=== PATIENT | female | born 1945 | race Caucasian/White ===

== ENCOUNTER 2017-12-25 15:28 | Outpatient (CLI) | payer OTHER | END 2017-12-25 16:55 | disposition home or self-care (01) | LOC: MRI 15:28 | DX: M96.1 Postlaminectomy syndrome, not elsewhere classified (principal); M51.27 Other intervertebral disc displacement, lumbosacral region | CPT/HCPCS: 72158 ==

== ENCOUNTER 2018-03-01 11:34 | Emergency (ER) | payer OTHER ==
[~2018-03-01] VITALS: Ht 149.9 cm; Wt 70.8 kg
[2018-03-01] MEDS ORDERED: METFORMIN HCL500 MG (12:00)
[2018-03-01] MEDS ORDERED: LANTUS SOL100 UNIT/1 (12:00)
[2018-03-01] MEDS ORDERED: AVAPRO300 MG (12:00)
[2018-03-01] MEDS ORDERED: HUMALOG100 UNIT/1 (12:00)
[2018-03-01] MEDS ORDERED: TOPROL XL100 MG (12:01)
[2018-03-01] MEDS ORDERED: GABAPENTIN600 MG (12:01)
[2018-03-01] MEDS ORDERED: AFEDITAB CR30 MG (12:01)
[2018-03-01] MEDS ORDERED: ASPIR 8181 MG (12:02)
[2018-03-01] MEDS ORDERED: ZOLOFT50 MG (12:02)
[2018-03-01] MEDS ORDERED: BRILINTA60 MG (12:02)
== END 2018-03-01 14:32 | disposition home or self-care (01) ==
LOC: ER 11:34
DX: L08.89 Other specified local infections of the skin and subcutaneous tissue (principal)

== ENCOUNTER 2023-03-24 04:14 | Emergency (ER) | payer OTHER ==
[~2023-03-24] VITALS: Ht 144.8 cm; Wt 77.1 kg
[~2023-03-24 04:14] MED LIST: AFEDITAB CR30 MG; ASPIR 8181 MG; AVAPRO300 MG; BRILINTA60 MG; GABAPENTIN600 MG; HUMALOG100 UNIT/1; LANTUS SOL100 UNIT/1; METFORMIN HCL500 MG; TOPROL XL100 MG; ZOLOFT50 MG
[2023-03-24] MEDS ORDERED: BUPROPION XL450 MG (04:46)
[2023-03-24] MEDS ORDERED: LANOXIN250 MCG (04:47)
[2023-03-24] MEDS ORDERED: ELIQUIS5 MG (04:47)
[2023-03-24] MEDS ORDERED: FOLIC ACID20 MG (04:47)
[2023-03-24] MEDS ORDERED: LASIX20 MG (04:48)
[2023-03-24] MEDS ORDERED: COZAAR25 MG (04:48)
[2023-03-24] MEDS ORDERED: ACTOS15 MG (04:49)
[2023-03-24] MEDS ORDERED: CRESTOR40 MG (04:50)
[2023-03-24] MEDS ORDERED: PREDNISONE2.5 MG (04:50)
[2023-03-24] MEDS ORDERED: VITAMIN D310 MCG/1 M (04:51)
== END 2023-03-24 14:44 | disposition designated cancer center or children's hospital (05) ==
LOC: ER 04:14
DX: R06.02 Shortness of breath (principal); R05.9 Cough, unspecified; S29.9XXA Unspecified injury of thorax, initial encounter; Z20.822 Contact with and (suspected) exposure to COVID-19; E11.9 Type 2 diabetes mellitus without complications; Z79.84 Long term (current) use of oral hypoglycemic drugs; J90 Pleural effusion, not elsewhere classified
CPT/HCPCS: 36415; 71046; 71250; 71260; 74177; 82803; 96365; 96372; 99285; J1885; J2270; Q9965